=== PATIENT | female | born 1965 | race Two or more races ===

== ENCOUNTER 2022-07-13 01:12 | Emergency (ER) | payer BC ==
[~2022-07-13] VITALS: Ht 167.6 cm; Wt 78.9 kg
[2022-07-13 07:49] VITALS: BP 143/80
[2022-07-13] MEDS ORDERED: KETOROLAC TROMETH 30 MG/ML 1ML VIAL IM ONE (09:00)
[2022-07-13] MEDS ORDERED: CYCL-839 PO (09:02)
[2022-07-13] MEDS ORDERED: ACET1CAP14 PO (09:02)
== END 2022-07-13 09:08 | disposition home or self-care (01) ==
LOC: ER 01:12
DX: S16.1XXA Strain of muscle, fascia and tendon at neck level, initial encounter (principal); E78.5 Hyperlipidemia, unspecified; Z98.890 Other specified postprocedural states; W18.09XA Striking against other object with subsequent fall, initial encounter; Y93.89 Activity, other specified; Y92.89 Other specified places as the place of occurrence of the external cause; Y99.8 Other external cause status
CPT/HCPCS: 70450; 72125; 96372; 99285; J1885